=== PATIENT | male | born 1965 | race Caucasian/White ===

== ENCOUNTER 2016-11-13 16:35 | Emergency (ER) | payer OTHER | END 2016-11-13 18:30 | disposition home or self-care (01) | LOC: ER1 16:35 | DX: L30.9 Dermatitis, unspecified (principal); I10 Essential (primary) hypertension; K21.9 Gastro-esophageal reflux disease without esophagitis; E78.00 Pure hypercholesterolemia, unspecified; Z79.899 Other long term (current) drug therapy | CPT/HCPCS: 99282 ==

== ENCOUNTER 2020-05-06 09:38 | Inpatient (IN) | payer OTHER ==
[2020-05-06 10:52] LABS: HEMOGLOBIN 14.5 gm/dl (14.0-17.5); RED BLOOD COUNT 4.58 M/UL (4.20-5.50); WHITE BLOOD COUNT 14.5 K/UL (4.5-11.0)
[2020-05-06 11:42] LABS: CRYPTOCOCCUS NEOFORMANS/GATTII Not Detected (Negative); CYTOMEGALOVIRUS Not Detected (Negative); ENTEROVIRUS Not Detected (Negative); ESCHERICHIA COLI K1 Not Detected (Negative); HAEMOPHILUS INFLUENZAE Not Detected (Negative); HERPES SIMPLEX VIRUS 1 Not Detected (Negative); HERPES SIMPLEX VIRUS 2 Not Detected (Negative); HUMAN HERPESVIRUS 6 Not Detected (Negative); HUMAN PARECHOVIRUS Not Detected (Negative); LISTERIA MONOCYTOGENES Not Detected (Negative); NEISERRIA MENINGITIDIS Not Detected (Negative); STREPTOCOCCUS AGALACTIAE Not Detected (Negative); STREPTOCOCCUS PNEUMONIAE Not Detected (Negative); VARICELLA ZOSTER VIRUS Not Detected (Negative)
[2020-05-06 12:07] LABS: GLUCOSE,CSF 55 mg/dL (50-80); TOTAL PROTEIN,CSF 60 mg/dL (20-45)
[2020-05-06 12:28] LABS: WBC (AUTOMATED 65 10^3 (0-5)
[2020-05-06 12:29] LABS: WBC (AUTOMATED 70 10^3 (0-5)
[2020-05-06 12:49] LABS: RBC (AUTOMATED) 0 10^6 (0)
[2020-05-06 13:00] LABS: RBC (AUTOMATED) 0 10^6 (0)
[2020-05-06] MEDS ORDERED: ZYRTEC10 MG PO (14:37)
[2020-05-06] MEDS ORDERED: PRILOSEC OTC20 MG PO (14:37)
[2020-05-06] MEDS ORDERED: LIPITOR20 MG PO (14:37)
[2020-05-07 06:35] LABS: HEMOGLOBIN 14.2 gm/dl (14.0-17.5); RED BLOOD COUNT 4.51 M/UL (4.20-5.50)
[2020-05-07 07:31] LABS: BUN/CREATININE RATIO 16 (0-10)
[2020-05-08 06:54] LABS: BUN/CREATININE RATIO 9 (0-10)
[2020-05-08 07:36] LABS: HEMOGLOBIN 14.3 gm/dl (14.0-17.5); RED BLOOD COUNT 4.56 M/UL (4.20-5.50)
[2020-05-08 07:37] LABS: WHITE BLOOD COUNT 33.4 K/UL (4.5-11.0)
[2020-05-09 03:38] LABS: HEMOGLOBIN 13.9 gm/dl (14.0-17.5); RED BLOOD COUNT 4.43 M/UL (4.20-5.50)
[2020-05-09 03:48] LABS: WHITE BLOOD COUNT 31.7 K/UL (4.5-11.0)
[2020-05-09 04:34] LABS: BUN/CREATININE RATIO 11 (0-10)
[2020-05-10 04:43] LABS: HEMOGLOBIN 14.2 gm/dl (14.0-17.5); RED BLOOD COUNT 4.49 M/UL (4.20-5.50); WHITE BLOOD COUNT 29.8 K/UL (4.5-11.0)
[2020-05-10 05:13] LABS: BUN/CREATININE RATIO 12 (0-10)
[2020-05-11 04:47] LABS: HEMOGLOBIN 12.7 gm/dl (14.0-17.5); RED BLOOD COUNT 4.05 M/UL (4.20-5.50)
[2020-05-11 05:00] LABS: WHITE BLOOD COUNT 21.9 K/UL (4.5-11.0)
[2020-05-11 05:07] LABS: BUN/CREATININE RATIO 20 (0-10)
[2020-05-12 02:56] LABS: HEMOGLOBIN 12.1 gm/dl (14.0-17.5); RED BLOOD COUNT 3.9 M/UL (4.20-5.50); WHITE BLOOD COUNT 19.5 K/UL (4.5-11.0)
[2020-05-12 03:50] LABS: BUN/CREATININE RATIO 34 (0-10)
[2020-05-13 05:19] LABS: HEMOGLOBIN 12.1 gm/dl (14.0-17.5); RED BLOOD COUNT 3.89 M/UL (4.20-5.50); WHITE BLOOD COUNT 19.2 K/UL (4.5-11.0)
[2020-05-13 05:46] LABS: BUN/CREATININE RATIO 40 (0-10)
[2020-05-14 05:41] LABS: HEMOGLOBIN 12.2 gm/dl (14.0-17.5); RED BLOOD COUNT 3.94 M/UL (4.20-5.50); WHITE BLOOD COUNT 27.7 K/UL (4.5-11.0)
[2020-05-14 06:02] LABS: BUN/CREATININE RATIO 47 (0-10)
[2020-05-15 05:15] LABS: BUN/CREATININE RATIO 51 (0-10)
[2020-05-15 05:36] LABS: HEMOGLOBIN 11.2 gm/dl (14.0-17.5); RED BLOOD COUNT 3.65 M/UL (4.20-5.50)
[2020-05-15 05:38] LABS: WHITE BLOOD COUNT 32.9 K/UL (4.5-11.0)
[2020-05-16 05:53] LABS: HEMOGLOBIN 13.3 gm/dl (14.0-17.5); RED BLOOD COUNT 4.51 M/UL (4.20-5.50); WHITE BLOOD COUNT 30.1 K/UL (4.5-11.0)
[2020-05-16 06:18] LABS: BUN/CREATININE RATIO 55 (0-10)
[2020-05-17 06:23] LABS: HEMOGLOBIN 11.8 gm/dl (14.0-17.5); WHITE BLOOD COUNT 27.1 K/UL (4.5-11.0)
[2020-05-17 06:27] LABS: RED BLOOD COUNT 3.76 M/UL (4.20-5.50)
[2020-05-17 06:49] LABS: BUN/CREATININE RATIO 66 (0-10)
[2020-05-18 04:11] LABS: HEMOGLOBIN 11.8 gm/dl (14.0-17.5); RED BLOOD COUNT 3.81 M/UL (4.20-5.50); WHITE BLOOD COUNT 25.9 K/UL (4.5-11.0)
[2020-05-18 04:48] LABS: BUN/CREATININE RATIO 68 (0-10)
[2020-05-19 04:10] LABS: HEMOGLOBIN 11.9 gm/dl (14.0-17.5); RED BLOOD COUNT 3.8 M/UL (4.20-5.50); WHITE BLOOD COUNT 24.6 K/UL (4.5-11.0)
[2020-05-19 04:34] LABS: BUN/CREATININE RATIO 53 (0-10)
[2020-05-20 02:27] LABS: HEMOGLOBIN 12.7 gm/dl (14.0-17.5); RED BLOOD COUNT 4.08 M/UL (4.20-5.50); WHITE BLOOD COUNT 21.2 K/UL (4.5-11.0)
[2020-05-20 02:50] LABS: BUN/CREATININE RATIO 42 (0-10)
[2020-05-21 06:02] LABS: HEMOGLOBIN 12.2 gm/dl (14.0-17.5); RED BLOOD COUNT 3.79 M/UL (4.20-5.50)
[2020-05-21 06:21] LABS: BUN/CREATININE RATIO 32 (0-10)
[2020-05-22 05:18] LABS: HEMOGLOBIN 12.7 gm/dl (14.0-17.5); RED BLOOD COUNT 4.1 M/UL (4.20-5.50); WHITE BLOOD COUNT 16.4 K/UL (4.5-11.0)
[2020-05-22 05:42] LABS: BUN/CREATININE RATIO 19 (0-10)
[2020-05-23 07:23] LABS: BUN/CREATININE RATIO 15 (0-10)
[2020-05-23 07:29] LABS: HEMOGLOBIN 13.3 gm/dl (14.0-17.5); RED BLOOD COUNT 4.28 M/UL (4.20-5.50); WHITE BLOOD COUNT 15.4 K/UL (4.5-11.0)
[2020-05-24 02:24] LABS: HEMOGLOBIN 13.4 gm/dl (14.0-17.5); RED BLOOD COUNT 4.35 M/UL (4.20-5.50); WHITE BLOOD COUNT 15.9 K/UL (4.5-11.0)
[2020-05-24 03:03] LABS: BUN/CREATININE RATIO 21 (0-10)
[2020-05-25 10:56] LABS: HEMOGLOBIN 14.2 gm/dl (14.0-17.5); RED BLOOD COUNT 4.59 M/UL (4.20-5.50); WHITE BLOOD COUNT 17.8 K/UL (4.5-11.0)
[2020-05-25 11:18] LABS: BUN/CREATININE RATIO 23 (0-10)
[2020-05-25 20:02] LABS: ADENOVIRUS F 40/41 Not Detected (Negative); ASTROVIRUS Not Detected (Negative); CAMPYLOBACTER Not Detected (Negative); CLOSTRIDIUM DIFFICILE TOX A/B Not Detected (Negative); CRYPTOSPORIDIUM Not Detected (Negative); ENTAMOEBA HISTOLYTICA Not Detected (Negative); ENTEROAGGREGATIVE E.COLI (EAEC Not Detected (Negative); ENTEROPATHOGENIC E.COLI (EPEC) Not Detected (Negative); ENTEROTOXIGENIC E.COLI (ETEC) Not Detected (Negative); GIARDIA LAMBLIA Not Detected (Negative); NOROVIRUS GI/GII Not Detected (Negative); PLESIOMONAS SHIGELLOIDES Not Detected (Negative); ROTOVIRUS A Not Detected (Negative); SALMONELLA Not Detected (Negative); SAPOVIRUS Not Detected (Negative); SHIG/ENTEROINVAS.ECOLI (EIEC) Not Detected (Negative); SHIGA-LIK TOX.PRO.E.COLI (STEC Not Detected (Negative); VIBRIO Not Detected (Negative); VIBRIO CHOLERAE Not Detected (Negative); YERSINIA ENTEROCOLITICA Not Detected (Negative)
[2020-05-26 02:17] LABS: HEMOGLOBIN 13.2 gm/dl (14.0-17.5); RED BLOOD COUNT 4.26 M/UL (4.20-5.50); WHITE BLOOD COUNT 16.9 K/UL (4.5-11.0)
[2020-05-26 02:55] LABS: BUN/CREATININE RATIO 24 (0-10)
[2020-05-27 02:34] LABS: HEMOGLOBIN 12.6 gm/dl (14.0-17.5); RED BLOOD COUNT 4.06 M/UL (4.20-5.50); WHITE BLOOD COUNT 13.8 K/UL (4.5-11.0)
[2020-05-27 02:53] LABS: BUN/CREATININE RATIO 31 (0-10)
[2020-05-28] MEDS ORDERED: AMLODIPINE BESYL5 MG PO (15:51)
[2020-05-28] MEDS ORDERED: KEPPRA 500 MG500 MG PO (15:51)
[2020-05-28] MEDS ORDERED: NYSTOP60 GM TOP (15:51)
== END 2020-05-28 17:42 | disposition home or self-care (01) | DRG 853 ==
LOC: ER1 09:38 → CDU 13:54 → PROG CARE 13:54 → MED SURG 4 13:54 → CCU 13:54 → PROG CARE 05-17 22:36 → MED SURG 4 05-20 18:24
PROVIDERS: Emergency Medicine; Family Medicine; Internal Medicine; Internal Medicine Pulmonary Disease; ADMIT Internal Medicine Infectious Disease
PROC: 5A1955Z Respiratory Ventilation, Greater than 96 Consecutive Hours (ICD-10-PCS; 2020-05-06)
PROC: 3E0G76Z Introduction of Nutritional Substance into Upper GI, Via Natural or Artificial Opening (ICD-10-PCS; 2020-05-06)
PROC: 009U3ZX Drainage of Spinal Canal, Percutaneous Approach, Diagnostic (ICD-10-PCS; 2020-05-06)
PROC: 0BH17EZ Insertion of Endotracheal Airway into Trachea, Via Natural or Artificial Opening (ICD-10-PCS; 2020-05-08)
PROC: 4A00X4Z Measurement of Central Nervous Electrical Activity, External Approach (ICD-10-PCS; 2020-05-08)
PROC: 0BC78ZZ Extirpation of Matter from Left Main Bronchus, Via Natural or Artificial Opening Endoscopic (ICD-10-PCS; 2020-05-13)
PROC: 0BC38ZZ Extirpation of Matter from Right Main Bronchus, Via Natural or Artificial Opening Endoscopic (ICD-10-PCS; 2020-05-13)
PROC: 0BCM8ZZ Extirpation of Matter from Bilateral Lungs, Via Natural or Artificial Opening Endoscopic (ICD-10-PCS; principal; 2020-05-13 07:05)
PROC: 0BCM8ZZ Extirpation of Matter from Bilateral Lungs, Via Natural or Artificial Opening Endoscopic (ICD-10-PCS; 2020-05-14)
DX: A41.89 Other specified sepsis (principal); J69.0 Pneumonitis due to inhalation of food and vomit; J15.9 Unspecified bacterial pneumonia; J96.02 Acute respiratory failure with hypercapnia; J96.01 Acute respiratory failure with hypoxia; R65.21 Severe sepsis with septic shock; G93.41 Metabolic encephalopathy; A86 Unspecified viral encephalitis; Z20.828 Contact with and (suspected) exposure to other viral communicable diseases; I10 Essential (primary) hypertension; R13.10 Dysphagia, unspecified; R74.01 Elevation of levels of liver transaminase levels; I27.20 Pulmonary hypertension, unspecified; R56.9 Unspecified convulsions; K44.9 Diaphragmatic hernia without obstruction or gangrene; K21.9 Gastro-esophageal reflux disease without esophagitis; K52.9 Noninfective gastroenteritis and colitis, unspecified; J98.01 Acute bronchospasm; E78.5 Hyperlipidemia, unspecified; R00.1 Bradycardia, unspecified; E87.6 Hypokalemia; Z87.891 Personal history of nicotine dependence; Z79.899 Other long term (current) drug therapy
CPT/HCPCS: 31500; 36415; 36600; 51701; 70450; 71045; 71250; 71260; 72125; 80048; 80053; 80202; 80307; 81001; 82140; 82550; 82553; 82728; 82803; 82945; 82962; 83605; 83615; 83690; 83735; 83880; 84100; 84132; 84157; 84439; 84443; 84484; 85025; 85027; 85379; 85384; 85610; 85730; 86140; 87040; 87070; 87086; 87205; 87483; 87507; 89051; 92610; 93005; 94002; 94003; 94640; 94664; 94667; 94668; 94760; 95819; 96365; 96366; 96367; 96375; 96376; 97110; 97112; 97116; 97116-GP-CQ; 97163; 97166; 97530-GP-CQ; 99285; A6212; C9113; G0480; J0133; J0330; J0692; J0696; J1100; J1170; J1205; J1650; J1940; J1953; J2060; J2250; J2310; J2405; J2550; J2704; J2920; J2930; J3010; J3370; J3480; J7030; J7050; J7070; P9047; Q9967; U0002; U0003

== ENCOUNTER 2021-04-26 14:42 | Emergency (ER) | payer OTHER ==
[~2021-04-26 14:42] MED LIST: AMLODIPINE BESYL5 MG PO; KEPPRA 500 MG500 MG PO; LIPITOR20 MG PO; NYSTOP60 GM TOP; PRILOSEC OTC20 MG PO; ZYRTEC10 MG PO
[2021-04-26 15:59] LABS: HEMOGLOBIN 15.4 gm/dl (14.0-17.5); RED BLOOD COUNT 4.86 M/UL (4.20-5.50); WHITE BLOOD COUNT 10.6 K/UL (4.5-11.0)
[2021-04-26 16:23] LABS: BUN/CREATININE RATIO 16 (0-10)
== END 2021-04-26 19:00 | disposition home or self-care (01) ==
LOC: ER1 14:42
PROVIDERS: Student in an Organized Health Care Education/Training Program
DX: K40.90 Unilateral inguinal hernia, without obstruction or gangrene, not specified as recurrent (principal); K21.9 Gastro-esophageal reflux disease without esophagitis; I10 Essential (primary) hypertension
CPT/HCPCS: 80048; 81001; 85025; 99284

== ENCOUNTER → 2021-05-26 | Day surgery (SDC) | payer OTHER ==
[~2021-05-26] MED LIST changes: +COLACE100 MG PO; +HYDROCODON-ACE1 EAC2 PO
== END | disposition home or self-care (01) ==
LOC: OR 05:28
DX: K40.20 Bilateral inguinal hernia, without obstruction or gangrene, not specified as recurrent (principal); I10 Essential (primary) hypertension; K64.4 Residual hemorrhoidal skin tags; K21.9 Gastro-esophageal reflux disease without esophagitis; K44.9 Diaphragmatic hernia without obstruction or gangrene; E78.00 Pure hypercholesterolemia, unspecified; I49.5 Sick sinus syndrome; G47.33 Obstructive sleep apnea (adult) (pediatric); Z20.822 Contact with and (suspected) exposure to COVID-19
CPT/HCPCS: C1781; J0690; J1170; J2250; J2704; J3010; J7120